=== PATIENT | female | born 1970 | race American Indian/Alaskan Native ===

== ENCOUNTER 2021-01-07 08:47 | Outpatient (CLI) | payer OTHER | END 2021-01-07 08:48 | disposition home or self-care (01) | LOC: PF 08:47 | PROVIDERS: ATTEND Internal Medicine | DX: F31.9 Bipolar disorder, unspecified (principal); J45.909 Unspecified asthma, uncomplicated; F41.9 Anxiety disorder, unspecified; F32.9 Major depressive disorder, single episode, unspecified | CPT/HCPCS: 94010 ==